=== PATIENT | female | born 2000 | race Caucasian/White ===

== ENCOUNTER 2019-07-27 15:50 | Emergency (ER) | payer MEDICAID ==
--- NOTE | 2019-07-27 16:22 | Emergency Department Record ---
History of Present Illness - General Chief complaint: Abscess Stated complaint: SORE ON TAIL BONE Time Seen by Provider: 07/27/19 16:15 Source: Patient Mode of Arrival: Ambulatory Limitations: No limitations - History of Present Illness Initial comments: 19 yo female presents with a sore on her tail bone area. The onset was yesterday. She has some local pain and swelling. She has had prior abscesses in the past. No fever. No spreading redness. She is 33 weeks . She is feeling the baby move. She had spotting a week ago and was evaluated at [facility]. She reports no complications or return of bleeding. Her OB is Cyn Ronquillo MD complaint: Abscess/boil -: Days(s) (1) Severity: Mild Quality: Aching Consistency: Constant Improves with: None Worsens with: Other (Palpation) Context: None Associated symptoms: Denies other symptoms Treatments Prior to Arrival: None - Related Data Previous Rx's Medication Instructions Recorded Clindamycin HCl 300 mg PO TID #21 capsule 07/27/19 Allergies Allergy/AdvReac Type Severity Reaction Status Date / Time Sulfa (Sulfonamide Allergy DIFFICULTY Verified 07/27/19 16:23 Antibiotics) BREATHING Review of Systems Constitutional: Denies: Chills, Fever, Malaise Eyes: Denies: Eye discharge ENT: Denies: Congestion, Throat pain Respiratory: Denies: Cough Cardiovascular: Denies: Chest pain Endocrine: Denies: Fatigue Gastrointestinal: Denies: Abdominal pain, Diarrhea, Nausea, Vomiting Genitourinary: Denies: Dysuria, Urgency Musculoskeletal: Denies: Arthralgia, Back pain, Myalgia Skin: Reports: As per HPI, Change in color, Lesions. Denies: Bruising Neurological: Denies: Headache, Numbness, Weakness Psychiatric: Denies: Anxiety Hematological/Lymphatic: Denies: Easy bleeding, Easy bruising Physical Exam - General General Appearance: Oriented x3, Cooperative, No acute distress Limitations: No limitations - Head Head exam: Atraumatic - Eye Eye exam: Normal appearance - ENT ENT exam: Normal exam Ear exam: Normal external inspection Nasal Exam: Normal inspection Mouth exam: Normal external inspection - Neck Neck exam: Normal inspection - Rectal Rectal exam: Other (2x3cm area of tenderness, erythema and mild swelling) - Extremities Extremities exam: Normal inspection - Neurological Neurological exam: Alert, Oriented X3 - Psychiatric Psychiatric exam: Normal affect, Normal mood - Skin Skin exam: Erythema Course - Reevaluation(s) Reevaluation #1: 07/27/19 16:32 Bedside US was used to assess the baby. Strong HR, fluid presents, movement present Bedside US was used to ID the abscess easily Procedure: Pilonidal Incision and Drainage of Abscess Betadine Prep Lidocaine plain 2.5 ml 11 Blade used to make an 10mm opening Pus was immediately expressed Culture was obtained The cavity was irrigated and loculations broken up Packing was placed in the cavity The patient tolerated the procedure well We discussed home care and when to return for a recheck 07/27/19 16:54 Disposition Disposition: Discharge Clinical Impression: Pilonidal abscess Disposition: Home, Self-Care Condition: (1) Good Instructions: Abscess (ED), Abscess Incision and Drainage (ED) Additional Instructions: Return on Tuesday to have the packing removed and the wound examined Change the dressings daily Return sooner if the area is painful, bleeding, spreading redness or any new concerns Prescriptions: Clindamycin HCl 300 mg PO TID #21 capsule Time of Disposition: 16:55 Quality - Quality Measures Quality Measures: N/A - Blood Pressure Screening Does Patient Have Any of the Following: No Systolic Measurement: ~ Screening for High Blood Pressure: < Normal BP, F/U Not Required > [G8783]
== END 2019-07-27 17:05 | disposition home or self-care (01) ==
LOC: ER 15:50
DX: O99.89 Other specified diseases and conditions complicating pregnancy, childbirth and the puerperium (principal); L05.01 Pilonidal cyst with abscess; Z3A.33 33 weeks gestation of pregnancy
CPT/HCPCS: 10080; 99284

== ENCOUNTER 2019-07-30 14:24 | Emergency (ER) | payer MEDICAID ==
--- NOTE | 2019-07-30 16:07 | Emergency Department Record ---
History of Present Illness - General Chief Complaint: Recheck - Other Stated Complaint: RECHECK,CYST TAILBONE Time Seen by Provider: 07/30/19 15:33 Source: Patient Mode of arrival: Ambulatory Limitations: No limitations - History of Present Illness Initial Comments: pt here for recheck of I & D of pilonidal cyst that had been drained. the packing came out today. pt has not started her abx that were rxd for her yet. she had a lot of drainage. she feels much better MD Complaint: Wound re-check Onset/Timin -: Days(s) Initial Visit For: Abscess Returns Today for: Wound recheck Symptoms Since Prior Visit: No new symptoms, Improved Associated Symptoms: None Treatments Prior to Arrival: Dressings - Related Data Previous Rx's Medication Instructions Recorded Clindamycin HCl 300 mg PO TID #21 capsule 07/27/19 Allergies Allergy/AdvReac Type Severity Reaction Status Date / Time Sulfa (Sulfonamide Allergy DIFFICULTY Verified 07/30/19 15:29 Antibiotics) BREATHING Travel Screening - Travel/Exposure Within Last 30 Days Have you traveled within the last 30 days?: No Review of Systems Reviewed: No additional complaints except as noted below Constitutional: Reports: As per HPI. Denies: Chills, Fever, Malaise, Night sweats, Weakness, Weight change Eyes: Reports: As per HPI. Denies: Eye discharge, Eye pain, Photophobia, Vision change ENT: Reports: As per HPI. Denies: Congestion, Dental pain, Ear pain, Epistaxis, Hearing loss, Throat pain Respiratory: Reports: As per HPI. Denies: Cough, Dyspnea, Hemoptysis, Stridor, Wheezes Cardiovascular: Reports: As per HPI. Denies: Arrhythmia, Chest pain, Dyspnea on exertion, Edema, Murmurs, Orthopnea, Palpitations, Paroxysmal nocturnal dyspnea, Rheumatic Fever, Syncope Endocrine: Reports: As per HPI. Denies: Fatigue, Heat or cold intolerance, Polydipsia, Polyuria Gastrointestinal: Reports: As per HPI. Denies: Abdominal pain, Constipation, Diarrhea, Hematemesis, Hematochezia, Melena, Nausea, Vomiting Genitourinary: Reports: As per HPI. Denies: Abnormal menses, Discharge, Dyspareunia, Dysuria, Frequency, Hematuria, Incontinence, Retention, Urgency Musculoskeletal: Reports: As per HPI. Denies: Arthralgia, Back pain, Gout, Joint swelling, Myalgia, Neck pain Skin: Reports: As per HPI. Denies: Bruising, Change in color, Change in hair/nails, Lesions, Pruritus, Rash Neurological: Reports: As per HPI. Denies: Abnormal gait, Confusion, Headache, Numbness, Paresthesias, Seizure, Tingling, Tremors, Vertigo, Weakness Psychiatric: Reports: As per HPI. Denies: Anxiety, Auditory hallucinations, Depression, Homicidal thoughts, Suicidal thoughts, Visual hallucinations Hematological/Lymphatic: Reports: As per HPI. Denies: Anemia, Blood Clots, Easy bleeding, Easy bruising, Swollen glands Past Medical History - SOCIAL HISTORY Smoking Status: Current every day smoker Alcohol Use: None Drug Use: None - RESPIRATORY Hx Respiratory Disorders: No - CARDIOVASCULAR Hx Cardio Disorders: No - NEURO Hx Neuro Disorders: No - GI Hx GI Disorders: No - Hx Genitourinary Disorders: No - ENDOCRINE Hx Endocrine Disorders: No - MUSCULOSKELETAL Hx Musculoskeletal Disorders: No - PSYCH Hx Psych Problems: No - HEMATOLOGY/ONCOLOGY Hx Hematology/Oncology Disorders: No Family Medical History Any Significant Family History?: No Physical Exam - General General Appearance: Alert, Oriented x3, Cooperative, Mild distress - Head Head exam: Normal inspection - Eye Eye exam: Normal appearance, PERRL, EOMI Pupils: Normal accommodation - ENT ENT exam: Normal exam, Mucous membranes moist, Normal external ear exam, Normal orophraynx Ear exam: Normal external inspection. negative: External canal tenderness Nasal Exam: Normal inspection. negative: Discharge, Sinus tenderness Mouth exam: Normal external inspection, Tongue normal Teeth exam: Normal inspection. negative: Dental caries Throat exam: Normal inspection. negative: Tonsillar erythema, Tonsillar exudate - Neck Neck exam: Normal inspection, Full ROM. negative: Tenderness - Respiratory Respiratory exam: Normal lung sounds bilaterally. negative: Respiratory distress - Cardiovascular Cardiovascular Exam: Regular rate, Normal rhythm, Normal heart sounds - GI/Abdominal GI/Abdominal exam: Soft, Normal bowel sounds. negative: Tenderness - Rectal Rectal exam: Deferred - exam: Deferred - Extremities Extremities exam: Normal inspection, Full ROM, Normal capillary refill. negative: Tenderness - Back Back exam: Reports: Normal inspection, Full ROM. Denies: Muscle spasm, Rash noted, Tenderness - Neurological Neurological exam: Alert, CN II-XII intact, Normal gait, Oriented X3 - Psychiatric Psychiatric exam: Normal affect, Normal mood - Skin Skin exam: Dry, Intact, Normal color, Warm Type of lesion: Abscess Distribution of rash: Other (pilonidal abscess has diminished, no fluctuence, slight erythema and warmth size of a quarter, incision has nearly closed, nontender) Course Vital Signs 07/30/19 15:26 Pulse Rate 100 H Respiratory 20 Rate Blood Pressure 121/86 Pulse Ox 96 Disposition Disposition: Discharge Clinical Impression: Abscess re-check Disposition: Home, Self-Care Condition: (1) Good Instructions: Pilonidal Cyst (ED) Additional Instructions: take antibiotics as prescribed. follow up with dr yanes. return sooner if worse. sitz baths. Referrals: Sumit Yanes [DOCTOR OF OSTEOPATH] - Quality - Quality Measures Quality Measures: N/A - Blood Pressure Screening Does Patient Have Any of the Following: No Blood Pressure Classification: Pre-Hypertensive BP Reading Systolic Measurement: 121 Diastolic Measurement: 86 Screening for High Blood Pressure: < Pre-Hypertensive BP, F/U Documented > [G89 50] Pre-Hypertensive Follow-up Interventions: Follow-up with rescreen every year.
== END 2019-07-30 16:30 | disposition home or self-care (01) ==
LOC: ER 14:24
DX: L05.01 Pilonidal cyst with abscess (principal)
CPT/HCPCS: 99282